=== PATIENT | female | born 1950 | race American Indian/Alaskan Native ===

== ENCOUNTER 2018-04-04 09:15 | Outpatient (CLI) | payer BC, MEDICARE ==
--- NOTE | 2018-04-04 16:25 | Mammography Report ---
BILATERAL DIGITAL SCREENING MAMMOGRAM with CAD: 04/04/18 09:15:00 CLINICAL: Routine screening. COMPARISON:06/18/16 and 03/03/15 FINDINGS: The breasts are mostly fatty. A left asymmetry on both views requires additional imaging. This was noted on the prior mammogram but the patient did not return for followup.No architectural distortion or suspicious calcifications.The right breast is negative. IMPRESSION: Left asymmetry requiring further workup. BI-RADS CATEGORY: 0 -- Additional Imaging Evaluation Required RECOMMENDATION: Recall for left exaggerated CC and spot compression MLO and CC views and left breast ultrasound. ACR BI-RADS MAMMOGRAPHIC CODES: 0 = Needs additional imaging evaluation; 1 = Negative; 2 = Benign; 3 = Probably benign; 4 = Suspicious; 5 = Malignant; 6 = Known biopsy-proven malignancy COMMENT: 1. Dense breast tissue, i.e., adenosis, fibrocystic changes, etc., may obscure an underlying neoplasm. 2. Approximately 10% of cancers are not detected with mammography. 3. A negative mammography report should not delay biopsy if a clinically suspicious mass is present. COMMENT: Patient follow-up letters are generated via our [employer] application.
== END 2018-04-04 09:16 | disposition home or self-care (01) ==
LOC: SPVWC 09:15
PROVIDERS: ATTEND Internal Medicine
DX: Z12.31 Encounter for screening mammogram for malignant neoplasm of breast (principal)
CPT/HCPCS: 77067

== ENCOUNTER 2018-04-18 11:16 | Outpatient (CLI) | payer BC, MEDICARE ==
--- NOTE | 2018-04-18 12:34 | Mammography Report ---
LEFT DIGITAL DIAGNOSTIC MAMMOGRAM : 04/18/18 11:16:00 CLINICAL: Recalled for asymmetry. COMPARISON:04/04/18 screening FINDINGS: Additional mammographic views were performed and are negative.An inferolateral linear parenchymal scar extends from an anterior surgical scar to the pectoral muscle and has benign features. IMPRESSION: No mammographic evidence of malignancy. Benign scar. BI-RADS CATEGORY: 2 - - Benign RECOMMENDATION: Routine mammographic screening in one year. ACR BI-RADS MAMMOGRAPHIC CODES: 0 = Needs additional imaging evaluation; 1 = Negative; 2 = Benign; 3 = Probably benign; 4 = Suspicious; 5 = Malignant; 6 = Known biopsy-proven malignancy COMMENT: 1. Dense breast tissue, i.e., adenosis, fibrocystic changes, etc., may obscure an underlying neoplasm. 2. Approximately 10% of cancers are not detected with mammography. 3. A negative mammography report should not delay biopsy if a clinically suspicious mass is present. COMMENT: Patient follow-up letters are generated via our [employer] application.
== END 2018-04-18 11:17 | disposition home or self-care (01) ==
LOC: SPVWC 11:16
PROVIDERS: ATTEND Internal Medicine
DX: N64.89 Other specified disorders of breast (principal)

== ENCOUNTER 2019-04-05 10:17 | Outpatient (CLI) | payer BC, MEDICARE ==
--- NOTE | 2019-04-05 11:12 | Mammography Report ---
Screening mammogram: Bilateral breast surgeries. Routine views were obtained. There is scarlike increased density in the lateral left breast. Several benign-appearing lymph nodes were identified in the axillary regions bilaterally. The overall breast pattern is generally fatty replaced. There no interval changes compared to exams dating back to June 2016. CAD used. Impression: Stable exam. Left breast scarring. Recommendation: Annual mammogram followup. BI-RADS CATEGORY: 2 = Benign ACR BI-RADS MAMMOGRAPHIC CODES: 0 = Needs additional imaging evaluation; 1 = Negative; 2 = Benign; 3 = Probably benign; 4 = Suspicious; 5 = Malignant; 6 = Known biopsy-proven malignancy COMMENT: 1. Dense breast tissue, i.e., adenosis, fibrocystic changes, etc., may obscure an underlying neoplasm. 2. Approximately 10% of cancers are not detected with mammography. 3. A negative mammography report should not delay biopsy if a clinically suspicious mass is present.
== END 2019-04-05 10:18 | disposition home or self-care (01) ==
LOC: SPVWC 10:17
PROVIDERS: ATTEND Internal Medicine
DX: Z12.31 Encounter for screening mammogram for malignant neoplasm of breast (principal)
CPT/HCPCS: 77067

== ENCOUNTER 2020-02-06 13:18 | Outpatient (CLI) | payer BC, MEDICARE | END 2020-02-06 13:19 | disposition home or self-care (01) | LOC: SPVIMAG 13:18 | DX: C50.912 Malignant neoplasm of unspecified site of left female breast (principal) | CPT/HCPCS: A9577; C8908 ==

== ENCOUNTER 2020-02-18 09:36 | Day surgery (SDC) | payer BC, MEDICARE ==
--- NOTE | 2020-02-15 08:27 | Short Stay Summary ---
Short Stay Documentation Date of service: 02/18/20 - History H&P: obtained from office - Allergies and Medications Current Medications: Allergies JUAN M Inhibitors Allergy (Verified 02/14/20 14:12) Cough lisinopril Allergy (Verified 02/14/20 14:12) cough Home Medications Medication Instructions Recorded Confirmed Last Taken Type Hydralazine HCl 50 mg PO BID 02/14/20 02/14/20 Unknown History Metformin HCl [Metformin HCl ER] 500 mg PO DAILY 02/14/20 02/14/20 Unknown History Rivaroxaban [Xarelto] 20 mg PO DAILY 02/14/20 02/14/20 Unknown History Sotalol HCl [Sotalol] 120 mg PO BID 02/14/20 02/14/20 Unknown History amLODIPine 5 mg PO DAILY 02/14/20 02/14/20 Unknown History Active Medications Sodium Chloride (Nacl 0.9% 1000 Ml) 1,000 mls @ 75 mls/hr IV DIRECT JOEL - Physical exam General appearance: no acute distress Integumentary: no rash, no growths HEENT: Atraumatic Lungs: Normal air movement Neurological: Normal speech - Brief post op/procedure progress note Date of procedure: 02/18/20 (dictation:[id number]) Pre-op diagnosis: left breast cancer Post-op diagnosis: same Procedure: US guided Port Placement IVF 300cc EBL min Anesthesia: MAC Findings: normal anatomy Surgeon: JACINTO JACOBS Estimated blood loss: minimal Pathology: none Condition: stable - Hospital course Hospital course: uneventful - Disposition Condition at discharge: Stable Disposition: DC-01 TO HOME OR SELFCARE Short Stay Discharge Plan Activity: advance as tolerated Diet: regular Wound: open to air, keep clean and dry Special Instructions: no heavy lifting Additional Instructions: Post Operative Instructions Activity: no heavy lifting for next 1 week. May shower tomorrow. Pat dry the wound or wounds. Keep incision sites clean and dry After surgery, start with a light diet. Consider starting with liquids. If you do well, you can advance to a regular diet as you feel comfortable. Apply an ice pack to the wound or wounds for 10-20 minutes at a time. Do this at least 4-5 times a day. You can do it more if he would like. Pain Medication Schedule for the first 2 days after surgery: Gabapentin 300mg twice a day Celebrex (celecoxib) 200mg twice a day Tylenol 500mg four times a day (every 6 hours) After the first 2 days, then take alternating doses of ibuprofen and Tylenol as needed for pain. Take 600 mg of ibuprofen every 6 hours as needed. Take 500 mg of Tylenol every 6 hours as needed. You should alternate these 2 medicines. Make sure you take the ibuprofen with food. It is very important that you use the prescription narcotic pain medicine (hydrocodone) only for very severe pain. Do not take the narcotic medicine before you try using all the medications listed above. We will call you in a couple of days to see how youre doing. If you have any questions or concerns, always feel free to call the clinic ([phone]) at any time. FOLLOW SURGEON INSTRUCTION SHEET MAY RESUME XARELTO TOMORROW (02-19-20)IF THERE IS NO BRUISING. WOUND:OPEN TO AIR.KEEP CLEAN AND DRY. NO HEAVY LIFTING. CALL FOR F/U APPT. Follow up with: ANYI GOMEZ MD [Primary Care Provider] - 7 Days Forms: Outpatient Surgery DC Inst. Prescriptions: Celecoxib [celeBREX] 200 mg PO BID #4 capsule Gabapentin 300 mg PO BID #4 capsule HYDROcodone/APAP 5-325 [[place] 5-325 mg TAB] 1 each PO Q6HR PRN #6 tablet PRN Reason: Pain , Severe (7-10)
[~2020-02-18 09:36] MED LIST: ACETAMINOPHEN 500 MG TAB PO NR; CELECOXIB 200 MG CAP PO NR; GABAPENTIN 300 MG CAP PO NR; LACTATED RINGERS 1,000 ML IV SCH; MIDAZOLAM 2 MG/2 ML INJ IV NR; SODIUM CHLORIDE 0.9% 1000 ML 1,000 ML IV SCH; ceFAZolin/Water 2 GM/20 ML 2 GM/20 ML SYRINGE IV NR
--- NOTE | 2020-02-18 11:07 | Anesthesia Consultation ---
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
[2020-02-18] MEDS ORDERED: fentaNYL 100 MCG/2 ML INJ IV PRN (11:09)
--- NOTE | 2020-02-18 11:09 | Anesthesia Day of Surgery ---
Anesthesia Day of Surgery - Day of Surgery Patient Examined: Yes Patient H&P Reviewed: Yes Patient is NPO: Yes Cardiac Clearance: Yes
[2020-02-18] MEDS ORDERED: BUPIVACAINE-EPINEPHRINE/PF 0.5%-1:200,000 (30 ML) VIAL INFILTRATI ONE ×2 (12:04→13:07)
[2020-02-18] MEDS ORDERED: SODIUM CHLORIDE 0.9% 250ML 250 ML ONE (12:04)
[2020-02-18] MEDS ORDERED: HEPARIN 10,000 UNITS/10 ML VIAL ONE (12:04)
[2020-02-18] MEDS ORDERED: LIDOCAINE (1%) 10 MG/1 ML VIAL 20 ML MDV ONE (12:04)
[2020-02-18] MEDS ORDERED: GELATIN SPONGE SIZE 100 TP ONE (12:05)
[2020-02-18] MEDS ORDERED: LIDOCAINE MPF (2%) 20 MG/1 ML VIAL 5 ML ONE (12:25)
[2020-02-18] MEDS ORDERED: propofoL 200 MG/20 ML VIAL IV ONE ×2 (12:25→13:10)
[2020-02-18] MEDS ORDERED: MIDAZOLAM 2 MG/2 ML INJ ONE (12:25)
[2020-02-18] MEDS ORDERED: KETAMINE/STERILE WATER 50 MG/ML SYRINGE ONE (12:25)
[2020-02-18] MEDS ORDERED: SODIUM CHLORIDE 0.9% IRR 1,500 ML BOTTLE IR ONE (13:06)
[2020-02-18] MEDS ORDERED: HEPARIN 1,000 UNIT/1 ML VIAL IV ONE (13:07)
[2020-02-18] MEDS ORDERED: LIDOCAINE (1%) 10 MG/1 ML VIAL 20 ML MDV INFILTRATI ONE (13:08)
[2020-02-18] MEDS ORDERED: SODIUM CHLORIDE 0.9% 250 ML IVPB IV ONE (13:09)
--- NOTE | 2020-02-18 14:24 | Operative Report ---
PREOPERATIVE DIAGNOSIS: Left breast cancer. POSTOPERATIVE DIAGNOSIS: Left breast cancer. PROCEDURES: 1. Ultrasound guidance for vascular access: 2. Subcutaneous port placement. ATTENDING PHYSICIAN: Lydia Winters MD ANESTHESIA: Local MAC. ESTIMATED BLOOD LOSS: Minimal. FLUIDS: 300 mL. FINDINGS: Normal anatomy. IMPLANTS: Smart port. COMPLICATIONS: None. DISPOSITION: Stable, transferred to Recovery Room. INDICATIONS: This is a 69-year-old female who presented to the office with a new diagnosis of left breast cancer. The patient was assessed to be in need for chemotherapy. Referral was made to General Surgery for port placement. Procedure, risks, benefits were explained to the patient. Risks include but were not limited to infection, bleeding, pain, injury to surrounding structures, possible port malfunction or malposition, possible need for further procedures in the future. The patient understood and consented. OPERATIVE NOTE: The patient was brought to the operating room and placed on the table in supine position. After adequate sedation was established, the patient was prepped and draped in the usual sterile fashion. Roll was placed behind the shoulders. SCDs were in place. Antibiotics were started. Timeout was called. After sterile prep and drape was done and time-out procedure was done, I began by checking the internal jugular vein. Because of her current Xarelto use, our plan was to go just for the internal jugular vein to minimize bleeding and control of bleeding should we have a problem. Local anesthetic was administered under ultrasound guidance. Small incision was made under ultrasound guidance. I placed the introducer needle into the internal jugular vein, I was able to aspirate on the first attempt. Please note that I had examined the vein prior to insertion of the needle. It was easily compressible. I saw no evidence of clots or obstruction or any abnormality in the internal jugular vein. Guidewire passed easily. We confirmed the position with fluoroscopy. We secured the wire and turned our attention to the port pocket. Site was identified. Area was anesthetized. Oblique incision was made along the lines of skin tension. Subcutaneous pocket was created. We tried to be very meticulous to minimize any bleeding. Because of her Xarelto use, additional local was administered along the tract site. We confirmed that the port fit easily into the pocket. A tunneler was passed up to the neck. Catheter was brought out. Dilator and sheath were passed over the wire very easily. Position was confirmed with fluoroscopy. We removed the dilator and wire, passed the catheter, adjusted the length. We trimmed off the excess and attached the port. I was able to easily aspirate and flush. When I was doing the locking solution, a little bit more difficulty as I then pushed the excess catheter back into position. I think the issue was the catheter was being kinked at the entrance near the left internal jugular vein. When we changed her position from Trendelenburg to reverse Trendelenburg and I put a little bit of downward pressure on the catheter, it straightened out the kinking and it was able to easily aspirate and flush. We made sure there was no bleeding. Additional local was injected, 3-0 Vicryl was used to close the deep skin layer. Skin was closed with 4-0 Monocryl subcuticular stitches. Skin was cleaned and dried. Dermabond was placed. The patient tolerated the procedure well. There were no complications. All counts were correct at the end of the case. Chest x-ray appeared without complication to me. We are waiting for the official read. I spoke to the family member who was with her and explained that I think due to her body habitus and set when she is sitting up. It should pull the port down, which will straighten it up, but in case there is difficulty during the chemotherapy this week, the patient simply just put a little downward pressure on the port and that should take care of the problem. JOB# [id number] SILVERIO/JOSEFINA
--- NOTE | 2020-02-18 14:34 | Fluoroscopy Report ---
CHEST 1 VIEW INDICATION / CLINICAL INFORMATION: BREAST CA/INSERTION INFUSAPORT. COMPARISON: None available. FINDINGS: SUPPORT DEVICES: The right port catheter terminates at the level of the right atrium. HEART / MEDIASTINUM: No significant abnormality. LUNGS / PLEURA: No significant pulmonary or pleural abnormality. No pneumothorax. ADDITIONAL FINDINGS: No significant additional findings. IMPRESSION: 1. Right port the level the right atrium, no complication. Signer Name: Benjamin Boswell MD Signed: 02/18/2020 2:29 PM Workstation Name: [id number]
[2020-02-18 14:44] VITALS: BP 140/75
--- NOTE | 2020-02-18 15:58 | Post Anesthesia Evaluation ---
- Post Anesthesia Evaluation Patient Participated: Yes Airway Patent: Yes Stable Respiratory Function: Yes Nausea/Vomiting: Yes Temp > 96.8F: Yes Pain Manageable: Yes Adequeate Hydration: Yes Anesthesia Complications: No
== END 2020-02-18 15:20 | disposition home or self-care (01) ==
LOC: OR 09:36
PROVIDERS: ATTEND Surgery
DX: C50.912 Malignant neoplasm of unspecified site of left female breast (principal); E78.00 Pure hypercholesterolemia, unspecified; I48.91 Unspecified atrial fibrillation; I12.0 Hypertensive chronic kidney disease with stage 5 chronic kidney disease or end stage renal disease; N18.6 End stage renal disease; Z79.899 Other long term (current) drug therapy; Z88.8 Allergy status to other drugs, medicaments and biological substances; Z79.4 Long term (current) use of insulin; Z79.84 Long term (current) use of oral hypoglycemic drugs; Z98.41 Cataract extraction status, right eye; Z98.42 Cataract extraction status, left eye; Z98.890 Other specified postprocedural states; Z86.73 Personal history of transient ischemic attack (TIA), and cerebral infarction without residual deficits; Z90.710 Acquired absence of both cervix and uterus
CPT/HCPCS: 36415; 36561; 76937; 77001; 82962; 84132; C1788; J0690; J1644; J2250; J2704; J7050; J7120; A4649

== ENCOUNTER 2020-08-15 06:10 | Day surgery (SDC) | payer BC, MEDICARE ==
--- NOTE | 2020-08-13 14:30 | Anesthesia Consultation ---
Anesthesia Consult and Med Hx Date of service: 08/15/20 - Airway Anesthetic Teeth Evaluation: Partials ROM Head & Neck: Adequate Mental/Hyoid Distance: Adequate Mallampati Class: Class III Intubation Access Assessment: Possibly Difficult - Pulmonary Exam CTA: Yes - Cardiac Exam Cardiac Exam: RRR - Pre-Operative Health Status ASA Pre-Surgery Classification: ASA3 Proposed Anesthetic Plan: General Nerve Block: PEC - Pulmonary Hx Smoking: No Hx Respiratory Symptoms: No - Cardiovascular System Hx Hypertension: Yes Hx Heart Attack/AMI: No Hx Percutaneous Transluminal Coronary Angioplasty (PTCA): No Hx Cardia Arrhythmia: Yes (hx paroxysmal A-fib, NSR on recent EKG; last dose Eliquis 08/12/20) Hx Pacemaker: No Hx Internal Defibrillator: No - Central Nervous System 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 Off HD since 06/2020. 08/07 eGFR ~40.) Hx Liver Disease: No Hx Insulin Dependent Diabetes: Yes (instructed to take 1/2 usual bedtime insulin dose night before surgery) Hx Thyroid Disease: No - Hematic Hx Anemia: Yes (08/07/20 H/H 11.8/38.5) - Other Systems Hx Cancer: Yes (breast ca last dose chemo 03/2020) - Additional Comments Anesthesia Medical History Comments: No hx anesthetic complications. Cardiology eval reviewed. TTE 09/2019 EF 70%, mild pHTN.
[~2020-08-15 06:10] MED LIST changes: -ACETAMINOPHEN 500 MG TAB PO NR; +ACETAMINOPHEN 500 MG TAB PO SCH; -CELECOXIB 200 MG CAP PO NR; -SODIUM CHLORIDE 0.9% 1000 ML 1,000 ML IV SCH; +fentaNYL 100 MCG/2 ML INJ IV PRN
[2020-08-15] MEDS ORDERED: BUPIVACAINE/PF (0.25%) 2.5 MG/ML 30 ML VIAL INFILTRATI ONE (07:20)
[2020-08-15] MEDS ORDERED: SUCCINYLCHOLINE CHLORIDE 200 MG/10 ML INJ MDV ONE ×2 (07:23→07:25)
[2020-08-15] MEDS ORDERED: LIDOCAINE MPF (2%) 20 MG/1 ML VIAL 5 ML ONE ×2 (07:23→13:36)
[2020-08-15] MEDS ORDERED: fentaNYL 100 MCG/2 ML INJ ONE (07:23)
[2020-08-15] MEDS ORDERED: ROCURONIUM 50 MG/5 ML INJ IV ONE (07:23)
[2020-08-15] MEDS ORDERED: propofoL 200 MG/20 ML VIAL IV ONE ×2 (07:27→13:36)
[2020-08-15] MEDS ORDERED: INSULIN REGULAR, HUMAN 100 UNITS/1 ML ONE (07:30)
[2020-08-15] MEDS ORDERED: METHYLENE BLUE 50 MG/10 ML AMP ONE (07:41)
[2020-08-15] MEDS ORDERED: SODIUM CHLORIDE P/F VIAL 10 ML 10 ML ONE (07:41)
[2020-08-15] MEDS ORDERED: INSULIN REGULAR, HUMAN 100 UNIT/ML 3ML VIAL IV ONE (07:45)
[2020-08-15] MEDS ORDERED: ePHEDrine SULFATE 50 MG/1 ML INJ ONE ×2 (08:36→14:46)
[2020-08-15] MEDS ORDERED: SODIUM CHLORIDE 0.9% P/F 10 ML VIAL INFILTRATI ONE (09:26)
[2020-08-15] MEDS ORDERED: METHYLENE BLUE 50 MG/10 ML AMP IV ONE (09:26)
[2020-08-15] MEDS ORDERED: SUGAMMADEX SODIUM 200 MG/2 ML VIAL IV ONE (09:29)
--- NOTE | 2020-08-15 09:39 | Anesthesia Day of Surgery ---
Anesthesia Day of Surgery - Day of Surgery Patient Examined: Yes Patient H&P Reviewed: Yes Patient is NPO: Yes
[2020-08-15] MEDS ORDERED: NEOSTIGMINE 10MG/10 ML INJ MDV ONE (09:51)
[2020-08-15] MEDS ORDERED: ONDANSETRON 4 MG/2 ML INJ ONE ×2 (09:51→15:29)
[2020-08-15] MEDS ORDERED: GLYCOPYRROLATE 0.4 MG/2 ML INJ ONE (09:51)
--- NOTE | 2020-08-15 10:03 | Progress Note ---
Regional Anesthesia Block - Regional Anesthesia Block Performed By:: CARLOS POSADAS Procedure: Left PEC Block with Ultrasound Pt Id, consent, time out; performed. Pt on monitor, VSS stable, sedation given per pre-op RN. Sterile prep and drape. Left side Landmarks Identified with ultrasound. 3cc 1% lido skin wheel. Needle advance in plane, 15cc .25% bupivacaine injected intimately with negatives aspiration. Pt tolerated procedure will, VSS stable.
[2020-08-15] MEDS ORDERED: LIDOCAINE (1%) 10 MG/1 ML VIAL 20 ML MDV ONE (10:22)
--- NOTE | 2020-08-15 12:28 | Mammography Report ---
LEFT BREAST NEEDLE LOCALIZATION USING X-RAY GUIDANCE The procedure was explained to the patient and informed consent obtained. PROCEDURE: Using 4 mL of 1% buffered lidocaine, a 25 gauge needle and x-ray guidance, the left poste rior breast lesion at 4:00 was localized with standard needle/wire technique. There were no immediate complications. INTERPRETATION: 2 images made during the procedure demonstrate the needle to be properly positioned. IMPRESSION: Successful needle localization of the posterior left breast lesion. Thank you for allowing us to participate in the care of your patient. Signer Name: Erik Nevarez Jr, MD Signed: 08/15/2020 12:23 PM Workstation Name: [id number]
[2020-08-15] MEDS ORDERED: WATER FOR IRRIG STERILE 1,500 ML BOTTLE IR ONE (14:33)
[2020-08-15] MEDS ORDERED: HYDROmorphone 1 MG/1 ML INJ ONE (14:34)
--- NOTE | 2020-08-15 15:55 | Mammography Report ---
MAMMOGRAPHY SURGICAL SPECIMEN HISTORY: Specimen after excisional biopsy, left breast cancer COMPARISON: Needle localization performed earlier today. FINDINGS: 2 x-ray images of the specimen are presented demonstrating the localization needle, surgica l clip and irregular left breast mass. Consider correlation with pathology to determine if the margin s are clear of tumor. Signer Name: Erik Nevarez Jr, MD Signed: 08/15/2020 3:51 PM Workstation Name: [id number]
[2020-08-15] MEDS ORDERED: BACITRACIN ZINC OINT 28.4 GM TP ONE ×2 (15:59→16:16)
--- NOTE | 2020-08-15 15:59 | Ultrasound Report ---
ULTRASOUND BREAST LEFT LIMITED HISTORY: Left breast cancer TECHNIQUE: Grayscale ultrasound FINDINGS: Ultrasound guidance was provided by radiology during lumpectomy by Dr. Bhagat on a left breast mass at approximately 4:00 12 cm from the nipple. 2 ultrasound images are presented. The left breast lesion/biopsy clip could not be confidently identified under ultrasound during surgery. Ultras ound localization failed. For this reason the patient was sent to the mammography department for need le localization. Signer Name: Erik Nevarez Jr, MD Signed: 08/15/2020 3:54 PM Workstation Name: [id number]
--- NOTE | 2020-08-15 16:45 | Short Stay Summary ---
Short Stay Documentation Date of service: 08/15/20 - History H&P: obtained from office - Allergies and Medications Current Medications: Allergies JUAN M Inhibitors Allergy (Verified 08/13/20 08:15) Cough lisinopril Allergy (Verified 08/13/20 08:15) cough Home Medications Medication Instructions Recorded Confirmed Last Taken Type Gabapentin 300 mg PO BID #4 capsule 02/18/20 08/15/20 08/14/20 20:00 Rx HYDROcodone/APAP 5-325 [[place] 1 each PO Q6HR PRN #6 tablet 02/18/20 08/15/20 08/14/20 20:00 Rx 5-325 mg TAB] Insulin Degludec [Tresiba 20 units SUB-Q DAILY 02/18/20 08/15/20 08/14/20 20:00 History Flextouch U-100] Magnesium Oxide [Magnesium] 400 mg PO DAILY 02/18/20 08/15/20 08/14/20 08:00 History NovoLOG Flexpen 14 units SUB-Q DAILY 02/18/20 08/15/20 08/14/20 20:00 History Omeprazole Magnesium [PriLOSEC Otc] 20 mg PO QDAY 02/18/20 08/15/20 08/14/20 20:00 History Rosuvastatin Calcium [Crestor] 10 mg PO DAILY 02/18/20 08/15/20 08/14/20 20:00 History oxyCODONE /ACETAMINOPHEN [Percocet 1 tab PO Q6HR PRN #25 tablet 08/15/20 Unknown Rx 5/325] Active Medications Acetaminophen (Tylenol) 1,000 mg PO PREOP JOEL Stop: 08/15/20 23:00 Last Admin: 08/15/20 06:50 Dose: 1,000 mg Documented by: Fentanyl (Sublimaze) 100 mcg IV ONCE PRN PRN Reason: sedation for nerve block Stop: 08/15/20 22:00 Last Admin: 08/15/20 07:28 Dose: 50 mcg Documented by: Gabapentin (Gabapentin) 300 mg PO PREOP NR Stop: 08/15/20 23:00 Last Admin: 08/15/20 06:50 Dose: 300 mg Documented by: Cefazolin Sodium (Ancef/Sterile Water 2 Gm/20 Ml) 2 gm in 20 mls @ 80 mls/hr IV PREOP NR; Protocol Stop: 08/15/20 23:59 Lactated Ringer's (Lactated Ringers) 1,000 mls @ 100 mls/hr IV DIRECT JOEL Stop: 08/15/20 23:59 Last Admin: 08/15/20 06:50 Dose: 100 mls/hr Documented by: Midazolam HCl (Versed) 2 mg IV PREOP NR Stop: 08/15/20 23:00 Last Admin: 08/15/20 07:27 Dose: 2 mg Documented by: - Brief post op/procedure progress note Date of procedure: 08/15/20 Pre-op diagnosis: left breast cancer lower outer quadrant Post-op diagnosis: same Procedure: left partial mastectomy with slnb Anesthesia: GETA Findings: left wire and clip present Surgeon: AMBERLY PRUITT Estimated blood loss: other (50 cc) Pathology: list Specimen disposition: to lab Condition: stable - Disposition Condition at discharge: Good Disposition: DC-01 TO HOME OR SELFCARE Short Stay Discharge Plan Activity: other (no heavy lifting) Diet: regular Wound: keep clean and dry (wear breast binder; may shower in 48 hours; no baths; apply bacitracin to incision twice daily) Follow up with: AMBERLY PRUITT MD [Staff Physician] - 7 Days Prescriptions: oxyCODONE /ACETAMINOPHEN [Percocet 5/325] 1 tab PO Q6HR PRN #25 tablet PRN Reason: Pain
--- NOTE | 2020-08-15 16:56 | Operative Report ---
Operative Report Operative Report: Operative Report: August 15, 2020 Preoperative diagnosis: Left breast cancer of the lower outer quadrant Postoperative diagnosis: Same Procedure: Left breast needle localization partial mastectomy of the lower outer quadrant with SLNB and placement of BioZorb marker Surgeon: Zoraida Bhagat MD Well Logging Operator Mud Analysis: Leeann Perez MD Anesthesia: General Findings: Left wire and clip present within radiograph specimen; x1 SLN; placement of BioZorb marker 2x3 cm Complications: None EBL: 50 cc Disposition: PACU in good condition Indications for operative procedure: This is a 69 year old lady with newly diagnosed left breast cancer of the loweer outer quadrant, Stage II [id number] ER /TX/Her-2 positive (4:30/5:00 position 12 cm FN). Patient underwent neoadjuvant chemotherapy that was complicated with acute renal failure requiring hemodialysis. Hemodialysis was recently stopped due to improved kidney function. Patient was then continued on letrozole and declined additional chemotherapy. She wished to proceed with breast conservation with recommendations as well. Recent left breast ultrasound with decrease in size of left breast cancer mass. She understands the role of adjuvant radiation therapy and as well as recommendations for additional chemotherapy following surgery. She wished to proceed with the above procedure. Procedure in detail: Anesthesia placed left pectoral block. Patient was then taken to the operating room. Gen. anesthesia was administered. The left nipple was injected with radioisotope and 1 cc of methylene blue dye with saline. Ultrasound was then used to roxy the area of known cancer around the 430 position 12 cm from the nipple with biopsy clip not well seen with 100% certainty and mass not visualized either. Ultrasound was also used from the radiology department with clip again not well visible with 100% certainity. Given area of cancer and clip not well seen, I then decided to awaken patient from general anesthesia and proceed with wire needle needle localization to ensure area was properly removed. Patient was then awakened from anesthesia without any complications and transported to PACU. I discussed with patient and her family with my recommendation to proceed with a left needle localization placement given area of cancer that was originally seen at last ultrasound was not easily visible and ultrasound not able to localize safely. She was then transferred to the radiology department. Radiologist was able to place left wire needle localization, but encountered some difficulty given lateral location of clip, but was successfully placed. Patient was then taken to the operating room and was laid supine. General anesthesia was administered. Left breast and axilla were prepped and draped in the normal sterile operative fashion. Timeout was performed. Gamma probe was inserted into the axilla. The area of hot spot was identified. A left axillary incision was made with a 15 blade knife with dissection taken down to the subcutaneous tissues. The axillary fascia was opened with the Bovie cautery. One SLN was identified and dissected free, node was blue as well. There were no additional counts present in the axilla. No palpable axillary lymph nodes present within the axilla. Lymph node was sent to pathology for permanent processing. Hemostasis was obtained in the left axillary cavity. Axillary cavity was appropriately irrigated and suctioned. Hemostasis was noted. Axillary fascia was approximated and closed using interrupted 3-0 Vicryl and the skin brought together and closed using a running 4-0 Monocryl followed by skin affix. Attention was then taken towards the left breast. Left lower outer quadrant wire was present and visualized as well on ultraasound. An inframmary fold breast incision around 5:00 position was made with a 15 blade knife and dissection taken down to subcutaneous tissues. First began raising of the lateral flap with removal of the wire from the skin with dissection taken past the area of known malignancy and then taken down to the pectoralis muscle, followed by raising of the superior flap, inferior flap and medial flap with all flaps taken past the area of known malignancy and then posteriorly down to the pectoralis muscle. The breast area of concern was appropriately removed posteriorly from the pectoralis muscle with the aid of the Bovie cautery. The wire was not encountered. Specimen was marked and then sent to pathology and radiology; radiograph specimen with wire and clip present. Breast cavity was irrigated and hemostasis was obtained. Then proceeded with complex closure. The posterior deep breast tissues were approximated and closed using interrupted 3-0 Vicryl. The subcutaneous tissues were then approximated and closed using interrupted 3-0 Vicryl followed by closing of the skin with a running 4-0 Monocryl and skin affix. The patient tolerated surgery very well and she was awaken from anesthesia without any complication and transported to PACU in good condition.
[2020-08-15 17:21] VITALS: BP 154/59
--- NOTE | 2020-08-15 17:21 | Post Anesthesia Evaluation ---
- Post Anesthesia Evaluation Patient Participated: Yes Airway Patent: Yes Stable Respiratory Function: Yes Nausea/Vomiting: No Temp > 96.8F: Yes Pain Manageable: Yes Adequeate Hydration: Yes Anesthesia Complications: Yes Block Receding Appropriately: Yes Patient on Ventilator: No
== END 2020-08-15 17:55 | disposition home or self-care (01) ==
LOC: OR 06:10
PROVIDERS: ATTEND Surgery
DX: C50.512 Malignant neoplasm of lower-outer quadrant of left female breast (principal); Z20.828 Contact with and (suspected) exposure to other viral communicable diseases; I89.8 Other specified noninfective disorders of lymphatic vessels and lymph nodes; I12.0 Hypertensive chronic kidney disease with stage 5 chronic kidney disease or end stage renal disease; E11.22 Type 2 diabetes mellitus with diabetic chronic kidney disease; N18.6 End stage renal disease; E78.00 Pure hypercholesterolemia, unspecified; I48.91 Unspecified atrial fibrillation; K21.9 Gastro-esophageal reflux disease without esophagitis; E78.5 Hyperlipidemia, unspecified; Z90.710 Acquired absence of both cervix and uterus; Z98.890 Other specified postprocedural states; Z98.41 Cataract extraction status, right eye; Z98.42 Cataract extraction status, left eye; Z90.49 Acquired absence of other specified parts of digestive tract; Z79.899 Other long term (current) drug therapy; Z86.73 Personal history of transient ischemic attack (TIA), and cerebral infarction without residual deficits
CPT/HCPCS: 19281; 19301; 38525; 38792; 76098; 76642; 78800; 82962; 88307; 88333; A9541; J0330; J0690; J1170; J2250; J2405; J2704; J2710; J3010; J7120; Q9968; U0003; J1815

== ENCOUNTER 2020-08-27 12:28 | Day surgery (SDC) | payer BC, MEDICARE ==
[~2020-08-27 12:28] MED LIST changes: -ACETAMINOPHEN 500 MG TAB PO SCH; +BUPIVACAINE/PF (0.25%) 2.5 MG/ML 30 ML VIAL INFILTRATI ONE; -GABAPENTIN 300 MG CAP PO NR; -LACTATED RINGERS 1,000 ML IV SCH; +LIDOCAINE (1%) 10 MG/1 ML VIAL 20 ML MDV ONE; -MIDAZOLAM 2 MG/2 ML INJ IV NR; -fentaNYL 100 MCG/2 ML INJ IV PRN
--- NOTE | 2020-08-27 13:25 | Anesthesia Day of Surgery ---
Anesthesia Day of Surgery - Day of Surgery Patient Examined: Yes Patient H&P Reviewed: Yes Patient is NPO: Yes Beta Blockers: Yes
[2020-08-27] MEDS ORDERED: ONDANSETRON 4 MG/2 ML INJ IV PRN (13:27)
[2020-08-27] MEDS ORDERED: HYDROmorphone 1 MG/1 ML INJ IV PRN ×2 (13:27)
--- NOTE | 2020-08-27 13:27 | Anesthesia Consultation ---
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 Off HD since 06/2020. 08/07 eGFR ~40.) Hx Insulin Dependent Diabetes: Yes Hx Thyroid Disease: No - Hematic Hx Anemia: Yes - Other Systems Hx Cancer: Yes - Additional Comments Anesthesia Medical History Comments: No hx anesthetic complications. Cardiology eval reviewed. TTE 09/2019 EF 70%, mild pHTN.
[2020-08-27] MEDS ORDERED: HYDROmorphone 1 MG/1 ML INJ ONE (13:58)
--- NOTE | 2020-08-27 13:58 | Short Stay Summary ---
Short Stay Documentation Date of service: 08/27/20 - History H&P: obtained from office - Allergies and Medications Current Medications: Allergies JUAN M Inhibitors Allergy (Verified 08/22/20 09:08) Cough lisinopril Allergy (Verified 08/22/20 09:08) cough Home Medications Medication Instructions Recorded Confirmed Last Taken Type Gabapentin 300 mg PO BID #4 capsule 02/18/20 08/22/20 08/14/20 20:00 Rx HYDROcodone/APAP 5-325 [Smoot 1 each PO Q6HR PRN #6 tablet 02/18/20 08/22/20 08/14/20 20:00 Rx 5-325 mg TAB] Insulin Degludec [Tresiba 20 units SUB-Q DAILY 02/18/20 08/22/20 08/14/20 20:00 History Flextouch U-100] Magnesium Oxide [Magnesium] 400 mg PO DAILY 02/18/20 08/22/20 08/14/20 08:00 History NovoLOG Flexpen 14 units SUB-Q DAILY 02/18/20 08/22/20 08/14/20 20:00 History Omeprazole Magnesium [PriLOSEC Otc] 20 mg PO QDAY 02/18/20 08/22/20 08/14/20 20:00 History Rosuvastatin Calcium [Crestor] 10 mg PO DAILY 02/18/20 08/22/20 08/14/20 20:00 History oxyCODONE /ACETAMINOPHEN [Percocet 1 tab PO Q6HR PRN #25 tablet 08/15/20 08/22/20 Unknown Rx 5/325] Apixaban [Eliquis] 10 mg PO DAILY 08/22/20 08/22/20 Unknown History amLODIPine [Norvasc] 10 mg PO DAILY 08/22/20 08/22/20 Unknown History dilTIAZem HCl [Diltiazem 24Hr ER 240 mg PO DAILY 08/22/20 08/22/20 Unknown History (Cd)] oxyCODONE /ACETAMINOPHEN [Percocet 1 tab PO Q6HR PRN #20 tablet 08/27/20 Unknown Rx 5/325] Active Medications Hydromorphone HCl (Dilaudid) 0.25 mg IV Q10MIN PRN PRN Reason: Pain, Moderate (4-6) Stop: 08/28/20 13:26 Hydromorphone HCl (Dilaudid) 0.5 mg IV Q10MIN PRN PRN Reason: Pain , Severe (7-10) Stop: 08/28/20 13:26 Cefazolin Sodium (Ancef/Sterile Water 2 Gm/20 Ml) 2 gm in 20 mls @ 80 mls/hr IV PREOP NR; Protocol Stop: 08/27/20 20:00 Lactated Ringer's (Lactated Ringers) 1,000 mls @ 125 mls/hr IV DIRECT JOEL Last Admin: 08/27/20 13:46 Dose: 125 mls/hr Documented by: Midazolam HCl (Versed) 2 mg IV PREOP NR Stop: 08/27/20 23:59 Last Admin: 08/27/20 13:47 Dose: 2 mg Documented by: Ondansetron HCl (Zofran) 4 mg IV ONCE PRN PRN Reason: Nausea And Vomiting - Brief post op/procedure progress note Date of procedure: 08/27/20 Pre-op diagnosis: Left breast positive margins Post-op diagnosis: same Procedure: Left breast revised surgical margins Anesthesia: GETA Findings: Right breast mass and clip present; x2 SLNs Surgeon: AMBERLY PRUITT Estimated blood loss: minimal Pathology: list Specimen disposition: to lab Condition: stable - Disposition Condition at discharge: Good Disposition: DC-01 TO HOME OR SELFCARE Short Stay Discharge Plan Activity: other (no heavy lifting) Diet: regular Wound: keep clean and dry (wear breast binder; may shower in 48 hours; no baths; apply bacitracin once a day to breast incision) Follow up with: ANYI GOMEZ MD [Primary Care Provider] - 7 Days AMBERLY PRUITT MD [Staff Physician] - 7 Days Prescriptions: oxyCODONE /ACETAMINOPHEN [Percocet 5/325] 1 tab PO Q6HR PRN #20 tablet PRN Reason: Pain
[2020-08-27] MEDS ORDERED: propofoL 200 MG/20 ML VIAL IV ONE (13:59)
[2020-08-27] MEDS ORDERED: MIDAZOLAM 2 MG/2 ML INJ IV NR (14:00)
[2020-08-27] MEDS ORDERED: LACTATED RINGERS 1,000 ML IV SCH (14:00)
[2020-08-27] MEDS ORDERED: ONDANSETRON 4 MG/2 ML INJ ONE (14:00)
[2020-08-27] MEDS ORDERED: dexAMETHasone 20 MG/5 ML VIAL ONE (14:00)
[2020-08-27] MEDS ORDERED: WATER FOR IRRIG STERILE 1,500 ML BOTTLE IR ONE (14:33)
[2020-08-27] MEDS ORDERED: BUPIVACAINE/PF (0.25%) 2.5 MG/ML 30 ML VIAL INFILTRATI ONE ×2 (14:33)
[2020-08-27] MEDS ORDERED: LIDOCAINE (1%) 10 MG/1 ML VIAL 20 ML MDV INFILTRATI ONE ×2 (14:33)
[2020-08-27] MEDS ORDERED: BACITRACIN ZINC OINT 28.4 GM TP ONE ×2 (15:39→15:44)
--- NOTE | 2020-08-27 16:12 | Operative Report ---
Operative Report Operative Report: Operative Report: Date of Service: August 27, 2020 Preoperative diagnosis:Left breast cancer of the lower outer quadrant with positive margins Postoperative diagnosis:Same Procedure: Left breast margins revision Surgeon: Zoraida Bhagat MD Anesthesia: General Findings: Revised anterior, superior, inferior, medial and posterior margins Complications: None EBL: Minimal Disposition: PACU in good condition Indications for operative procedure: This is a 69 year old lady with newly diagnosed Stage II left breast cancer of the lower outer quadrant, [id number]; [id number] ER/NC/Her-2 positive. She recently underwent left needle localization partial mastecomy with SLND. Anterior anterior and posterior margins positive and less than 1 mm margin of superior, inferior, and medial. Recommendations were to proceed with anterior and posterior margin revision. Patient wished to proceed with the above procedure. Procedure in detail: The patient was taken to the operating room and was placed supine. General anesthesia was administered. The left breast was prepped and draped in the normal sterile operative fashion. Timeout was performed. Skin incision was made through the prior breast incision with a 15 blade knife at inframammary fold around 5:00 position. Subcutaneous tissues were opened with the aid of the Bovie cautery and knife. Seroma cavity was encountered and suctioned. Hemostasis was noted. Anterior, superior, inferior and medial m argins were then revised using the Bovie cautery. The inferior margin was revised slightly below the inframammary fold of 2 cm and remainder margins revised b at least 3 cm. Then attention was taken towards revision of the posterior margin with excision of anterior aspect of pectoralis muscled given prior partial mastectomy was taken down to the pectoralis muscle. Specimen was marked and sent to pathology. Hemostasis was obtained with the Bovie cautery. Breast cavity was anesthetized with 1% lidocaine mixed with quarter percent Marcaine. The deep breast tissue was approximated and closed using interrupted 3-0 Vicryl and skin brought together and closed using a running 4-0 Monocryl followed by skin affix. She tolerated surgery very well and was awaken from anesthesia without any complications and transported to PACU in good condition.
[2020-08-27 17:16] VITALS: BP 137/68
--- NOTE | 2020-08-27 17:57 | Post Anesthesia Evaluation ---
- Post Anesthesia Evaluation Patient Participated: Yes Airway Patent: Yes Stable Respiratory Function: Yes Nausea/Vomiting: No Temp > 96.8F: Yes Pain Manageable: Yes Adequeate Hydration: Yes Anesthesia Complications: No Block Receding Appropriately: Not Applicable Patient on Ventilator: No
== END 2020-08-27 17:25 | disposition home or self-care (01) ==
LOC: OR 12:28
PROVIDERS: ATTEND Surgery
DX: C50.512 Malignant neoplasm of lower-outer quadrant of left female breast (principal); Z20.828 Contact with and (suspected) exposure to other viral communicable diseases; R92.1 Mammographic calcification found on diagnostic imaging of breast; I12.0 Hypertensive chronic kidney disease with stage 5 chronic kidney disease or end stage renal disease; E11.22 Type 2 diabetes mellitus with diabetic chronic kidney disease; N18.6 End stage renal disease; E78.00 Pure hypercholesterolemia, unspecified; I48.91 Unspecified atrial fibrillation; K21.9 Gastro-esophageal reflux disease without esophagitis; D64.9 Anemia, unspecified; Z79.899 Other long term (current) drug therapy; Z88.8 Allergy status to other drugs, medicaments and biological substances; Z79.4 Long term (current) use of insulin; Z90.11 Acquired absence of right breast and nipple; Z90.710 Acquired absence of both cervix and uterus; Z99.2 Dependence on renal dialysis; Z98.41 Cataract extraction status, right eye; Z98.42 Cataract extraction status, left eye; Z98.890 Other specified postprocedural states; Z86.73 Personal history of transient ischemic attack (TIA), and cerebral infarction without residual deficits
CPT/HCPCS: 19301; 82962; 88307; 88341; 88342; J0690; J1100; J1170; J2250; J2405; J2704; J7120; U0003